=== PATIENT | female | born 1970 | race Caucasian/White ===

== ENCOUNTER → 2021-10-30 | Outpatient (CLI) | payer BC | LOC: HEART 5 11:00 | DX: R07.9 Chest pain, unspecified (principal); R00.1 Bradycardia, unspecified ==

== ENCOUNTER → 2021-11-07 | Outpatient (CLI) | payer BC | LOC: HEART 5 10-30 14:30 | DX: R42 Dizziness and giddiness (principal); R00.1 Bradycardia, unspecified ==